=== PATIENT | female | born 1995 | race Caucasian/White ===

== ENCOUNTER 2022-06-25 12:58 | Outpatient (CLI) | payer OTHER, SELFPAY ==
--- NOTE | ~2022-06-25 | US_ITS ---
EXAMINATION: US OB <= 14 weeks fetus DATE: 06/25/2022 14:04 INDICATION: Spotting during first trimester TECHNIQUE: Real-time pelvic transabdominal and transvaginal ultrasound was performed. COMPARISON: None. FINDINGS: The uterus measures 7.7 x 3.7 x 4.7 cm. There is an intrauterine gestational sac. A yolk s ac is identified. heart motion is identified measuring 153 beats per minute (bpm) by M-mode Dop pler. The crown rump length measures 4 mm, which correlates with an estimated gestational age o f 6 weeks and 1 day(s) (+/-) 4 day(s). The right ovary is not visualized however no right adnexal abnormality is seen. The left ovary measur es 3.1 x 1.8 x 2.2 cm. There is normal vascular flow in the left ovary. There is no free fluid in the pelvis. IMPRESSION: 1. Live intrauterine with an estimated gestational age of 6 weeks and 1 day(s) (+/-) 4 day( s) and an estimated delivery date of 02/17/2023. Reviewed, dictated and finalized at location F. AULIC BOOM OPERATOR IMPRESSION: 1. Live intrauterine with an estimated gestational age of 6 weeks and 1 day(s) (+/-) 4 day(s) and an estimated delivery date of 02/17/2023.
== END 2022-06-25 12:59 | disposition home or self-care (01) ==
PROVIDERS: Visit Provider Obstetrics & Gynecology Gynecology
DX: O26.851 Spotting complicating pregnancy, first trimester (principal); Z3A.01 Less than 8 weeks gestation of pregnancy
CPT/HCPCS: 76801

== ENCOUNTER 2022-06-30 16:38 | Outpatient (RCR) | payer OTHER, SELFPAY ==
[2022-06-30] MEDS: RHO(D) IMMUNE GLOBULIN 300 MCG/2 ML SYRINGE IM (18:50)
== END 2022-09-23 23:59 | disposition home or self-care (01) ==
LOC: ANHLAB 16:38
PROVIDERS: Visit Provider Obstetrics & Gynecology Gynecology
DX: Z29.13 Encounter for prophylactic Rho(D) immune globulin (principal); O36.0110 Maternal care for anti-D [Rh] antibodies, first trimester, not applicable or unspecified; O26.851 Spotting complicating pregnancy, first trimester; Z3A.00 Weeks of gestation of pregnancy not specified
CPT/HCPCS: 36415; 84702; 85461; 86850; 86900; 86901; 90384; 96372; J2790

== ENCOUNTER 2022-09-17 12:50 | Outpatient (CLI) | payer OTHER, SELFPAY ==
--- NOTE | ~2022-09-17 | US_ITS ---
EXAMINATION: US OB /maternal detail DATE: 09/17/2022 14:25 INDICATION: anatomic survey. TECHNIQUE: Real-time ultrasound of the pelvis was performed. COMPARISON: Ultrasound 06/25/2022 FINDINGS: There is a single living fetus in transverse lie with head to mother's right. The placenta is anteri or, 1.3 cm from the cervix. heart rate is 155 beats per minute (bpm). The amniotic fluid volume is subjectively normal. The cervical length is 4.2 cm on transabdominal images, which is normal. The following biometric data were obtained: Biparietal diameter (BPD): 3.9 cm; head circumference (HC): 14.5 cm; abdominal circumference (AC): 13 .5 cm; femur length (FL): 2.7 cm. These measurements are concordant. Estimated weight is 241 g +/- 36 g, which correlates with the 7th percentile when 02/08/23 is use d as estimated date of delivery. As single measurements, these parameters are each equal to the following estimated gestational ages: BPD: 17 weeks 5 days. HC: 17 weeks 5 days. AC: 18 weeks 6 days. FL: 18 weeks 1 days. estimated gestational age based solely on measurements from this exam is 18 weeks 1 days +/- 1 weeks 2 days. The cerebral ventricles, cerebellum, cisterna magna, nuchal fold, and visualized portions of the spin e are normal. The diaphragm, stomach, and kidneys are normal. The cord insertion is normal. IMPRESSION: 1. Single living fetus in transverse lie. 2. Small for gestational age. Estimated weight is 241 g +/- 36 g, which correlates with the 7th percentile when 02/08/23 is used as estimated date of delivery. Note that estimated date of delivery b ased on the first ultrasound from 06/25/2022 would be 02/17/2023. 3. heart and bladder and umbilical cord not well visualized. Reviewed, dictated and finalized at location A. GE CLIPPER IMPRESSION: 1. Single living fetus in transverse lie. 2. Small for gestational age. Estimated weight is 241 g +/- 36 g, which c orrelates with the 7th percentile when 02/08/23 is used as estimated date of deli very. Note that estimated date of delivery based on the first ultrasound from 08/25/2021 would be 02/17/2023. 3. heart and bladder and umbilical cord not well visualized.
== END 2022-09-17 12:51 | disposition home or self-care (01) ==
PROVIDERS: Visit Provider Obstetrics & Gynecology Gynecology
DX: Z36.9 Encounter for antenatal screening, unspecified (principal)
CPT/HCPCS: 76805

== ENCOUNTER 2022-10-08 15:33 | Outpatient (CLI) | payer OTHER, SELFPAY ==
--- NOTE | ~2022-10-08 | US_ITS ---
EXAMINATION: US OB follow up DATE: 10/08/2022 16:18 INDICATION: Low-lying placenta during second trimester TECHNIQUE: Real-time ultrasound of the pelvis was performed. The interpreting radiologist was not pre sent for the study. COMPARISON: 09/17/2022 FINDINGS: There is a single living fetus in vertex presentation. The placenta is anterior and 3.5 cm from the internal cervical os. cardiac activity and movement are noted. heart rate is 138 beats per minute (bpm). The amniotic fluid index is 16.4 cm which is normal (normal range: 9.5 cm to 21.4 cm). The urinary bladder appears normal. The four-chamber heart and three-vessel cord are not well demonstrated due to body habitus. IMPRESSION: 1. Single living fetus in vertex presentation. 2. Anterior placenta 3.5 cm from the internal cervical os. 3. Four chamber heart and three-vessel cord not well demonstrated. Reviewed, dictated and finalized at location F. GEMENT ASSOCIATE
== END 2022-10-08 15:34 | disposition home or self-care (01) ==
PROVIDERS: Visit Provider Obstetrics & Gynecology Gynecology
DX: O44.42 Low lying placenta NOS or without hemorrhage, second trimester (principal)
CPT/HCPCS: 76816

== ENCOUNTER 2022-10-22 16:02 | Outpatient (CLI) | payer OTHER, SELFPAY ==
--- NOTE | ~2022-10-22 | US_ITS ---
EXAMINATION: US OB follow up DATE: 10/22/2022 17:05 INDICATION: survey follow-up TECHNIQUE: Real-time transabdominal obstetric ultrasound. FINDINGS: Comparison to multiple prior studies sequentially, with oldest reviewed study dated 2021. There is a single living fetus in vertex presentation. The placenta is anterior without placenta pre via. cardiac activity and movement is noted with a heart rate of 157 beats per minute. T he amniotic fluid volume is normal. ADRIAN measures 18.3 cm. Cervical length is 4.5 cm. The following biometric data were obtained: BPD: 56mm corresponds to gestational age 23 weeks 1 days. Head circumference: 209mm corresponds to gestational age 23 weeks 0 days. Abdominal circumference: 187mm corresponds to gestational age 23 weeks 3 days. Femur length: 40mm corresponds to gestational age 23 weeks 0 days. Estimated weight: 574grams +/- 86grams.] Limited survey demonstrates normal four-chamber heart and three-vessel cord. IMPRESSION: 1. Single living fetus in vertex presentation with an estimated gestational age of 23 weeks 1 days b y inititial ultrasound. Appropriate interval growth. 2. Normal placenta. 3: Normal limited survey of the four-chamber heart and three-vessel cord. Reviewed, dictated and finalized at location A. IMPRESSION: 1. Single living fetus in vertex presentation with an estimated gestational ag e of 23 weeks 1 days by inititial ultrasound. Appropriate interval growt h. 2. Normal placenta. 3: Normal limited survey of the four-chamber heart and three-vessel cord .
== END 2022-10-22 16:03 | disposition home or self-care (01) ==
PROVIDERS: Visit Provider Obstetrics & Gynecology Gynecology
DX: Z36.2 Encounter for other antenatal screening follow-up (principal)
CPT/HCPCS: 76816

== ENCOUNTER 2022-11-19 12:47 | Outpatient (RCR) | payer OTHER, SELFPAY ==
[2022-11-19 14:42] LABS: Hemoglobin 11.7 g/dL (12.0-15.0)
[2022-11-19 14:55] LABS: Glucose 1 Hour PP 50gm Dose 139 mg/dL
[2022-11-19] MEDS: RHO(D) IMMUNE GLOBULIN 300 MCG/2 ML SYRINGE IM (15:51)
[2022-11-19] MEDS: TETANUS,DIPHTHERIA,AC PERTUSSIS ADULT (0.5 ML) BOOSTRIX IM (15:55)
[2022-11-19 16:38] LABS: HIV 1/2 Ab P24 Ag Result Negative (Negative)
[2022-11-19 17:30] LABS: Vitamin D 25 Hydroxy 51.5 ng/mL
== END 2023-02-17 23:59 | disposition home or self-care (01) ==
LOC: ANHLAB 12:47
PROVIDERS: Visit Provider Obstetrics & Gynecology Gynecology
DX: Z11.4 Encounter for screening for human immunodeficiency virus [HIV] (principal); Z29.13 Encounter for prophylactic Rho(D) immune globulin; O36.0190 Maternal care for anti-D [Rh] antibodies, unspecified trimester, not applicable or unspecified; Z3A.00 Weeks of gestation of pregnancy not specified
CPT/HCPCS: 36415; 82306; 82947; 85014; 85018; 85461; 86703; 86850; 86900; 86901; 90384; 90715; 96372; G0432; J2790

== ENCOUNTER 2023-01-13 15:42 | Outpatient (CLI) | payer OTHER, SELFPAY ==
--- NOTE | ~2023-01-13 | US_ITS ---
EXAMINATION: US OB follow up DATE: 01/13/2023 16:26 INDICATION: Gestational diabetes during third trimester TECHNIQUE: Real-time ultrasound of the pelvis was performed. The interpreting radiologist was not pre sent for the study. COMPARISON: 10/22/2022 FINDINGS: There is a single living fetus in vertex presentation. The placenta is anterior. card iac activity and movement are noted. heart rate is 138 beats per minute (bpm). The amniot ic fluid index is 11.7 cm which is normal (normal range: 7.9 cm to 24.9 cm). The following biometric data were obtained: Biparietal diameter (BPD): 8.8 cm; head circumference (HC): 32.1 cm; abdominal circumference (AC): 35 .8 cm; femur length (FL): 6.8 cm. These measurements are concordant. Estimated weight is 3291 g +/- 493 g, which correlates with the >97th percentile when 02/17/2023 is used as estimated date of delivery. As single measurements, these parameters are each equal to the following estimated gestational ages w ith ranges of +/- 2 standard deviations: BPD: 35 weeks 4 days +/- 3 weeks 1 days. HC: 36 weeks 2 days +/- 2 weeks 5 days. AC: 39 weeks 5 days +/- 3 weeks 0 days. FL: 34 weeks 6 days +/- 3 weeks 0 days. estimated gestational age based solely on measurements from this exam is 36 weeks 4 days +/- 2 weeks 4 days. IMPRESSION: 1. Single living fetus in vertex presentation. 2. Normal amniotic fluid index. 3. Estimated weight is 3291 g +/- 493 g, which correlates with the >97th percentile when 023 is used as estimated date of delivery. Reviewed, dictated and finalized at location F. IMPRESSION: 1. Single living fetus in vertex presentation. 2. Normal amniotic fluid index. 3. Estimated weight is 3291 g +/- 493 g, which correlates with the >97th percentile when 02/17/2023 is used as estimated date of delivery.
== END 2023-01-13 15:43 | disposition home or self-care (01) ==
PROVIDERS: Visit Provider Advanced Practice Midwife
DX: O24.414 Gestational diabetes mellitus in pregnancy, insulin controlled (principal); Z79.4 Long term (current) use of insulin
CPT/HCPCS: 76816

== ENCOUNTER 2023-02-08 17:04 | Outpatient (RCR) | payer OTHER, SELFPAY ==
[2022-12-28 18:18] VITALS: BP 117/65; PULSE 96
[2022-12-31 17:30] VITALS: BP 122/75; PULSE 102
[2023-01-09 10:32] VITALS: BP 129/69; PULSE 107
[2023-01-12 17:26] VITALS: BP 116/70; PULSE 91
[2023-01-15 17:43] VITALS: BP 111/60; PULSE 100
[2023-01-18 16:06] VITALS: BP 112/77; PULSE 95
[2023-01-25 17:33] VITALS: BP 131/75; PULSE 96
[2023-02-01 17:37] VITALS: BP 116/60; PULSE 94
[2023-02-08 17:48] VITALS: BP 138/75; PULSE 90
== END 2023-03-28 23:59 | disposition home or self-care (01) ==
LOC: ANHOBOP 17:04
PROVIDERS: Visit Provider Obstetrics & Gynecology Gynecology
DX: O24.419 Gestational diabetes mellitus in pregnancy, unspecified control (principal); Z3A.32 32 weeks gestation of pregnancy
CPT/HCPCS: 59025

== ENCOUNTER 2023-02-11 16:03 | Inpatient (IN) | payer OTHER, SELFPAY ==
[2023-02-11] VITALS (17 sets, daily range): BP systolic 100–135; BP diastolic 49–81; PULSE 87–117; RESP 16–18; TEMP 36.2–36.8; BMI 42.9
[2023-02-11 16:55] LABS: Glucose Point of Care 148 mg/dl (65-105)
[2023-02-11 16:57] LABS: Basophils Percent Auto 0.2 % (0.2-1.2); Eosinophils Absolute Auto 0.1 K/mm3 (0-0.3); Eosinophils Percent Auto 0.4 % (0-4.4); Hematocrit 34.6 % (37.0-47.0); Hemoglobin 11.9 g/dL (12.0-15.0); Immature Granulocyte Absolute 0.08 K/mm3 (0.00-0.031); Immature Granulocyte Percent A 0.5 % (0-0.5); Lymphocytes Absolute Auto 1.92 K/mm3 (0.9-3.2); Lymphocytes Percent Auto 11.8 % (18.3-44.2); Mean Corpuscular HGB Conc 34.4 g/dl (32-36); Mean Corpuscular Hemoglobin 31.5 pg (26-34); Mean Corpuscular Volume 91.5 fl (80-100); Mean Platelet Volume 11.6 fl (7.4-10.4); Monocytes Absolute Auto 0.8 K/mm3 (0.1-0.6); Monocytes Percent Auto 5.1 % (2.6-8.5); Neutrophils Absolute Auto 13.3 K/mm3 (1.3-6.7); Platelet Count Result 218 k/mm3 (150-375); Red Blood Count 3.78 M/mm3 (4.2-5.4); White Blood Count 16.2 K/mm3 (4.5-10.0)
[2023-02-11] MEDS: LACTATED RINGERS 1,000 ML 125 ML IV CONT (17:12)
[2023-02-11] MEDS: AMPICILLIN 2 GM/NS 100 ML 2 GM/100 ML BAG IVPB (17:14)
[2023-02-11] MEDS: miSOPROStol 25 MCG TABLET BY MOUTH (17:17)
--- NOTE | 2023-02-11 19:02 | WPDANESEPP ---
Anes - Eval Pre Procedure Procedure: labor epidural Date/Time: 02/11/23 19:02 Pre Op Diagnosis: IOL Patient Data Age: 28 Gender: F Height: 1.7 m Weight: 124.3 kg Last Vital Signs Temp 36.8 C 02/11/23 17:00 Pulse 107 H 02/11/23 19:01 BP 133/68 02/11/23 19:01 O2 Del Method Room Air 02/11/23 17:21 Allergies Allergy/AdvReac Type Severity Reaction Status Date / Time amoxicillin Allergy Rash Verified 11/19/22 15:50 Home Medications Medication Instructions Recorded Confirmed Type aspirin 81 mg tablet 81 mg PO DAILY 12/28/22 02/11/23 History insulin NPH isoph U-100 human 100 52 unit subcut HS 12/28/22 02/11/23 History unit/mL (3 mL) subcutaneous pen (Novolin N FlexPen) vit no.95-ferrous 1 tablet PO DAILY 12/28/22 02/11/23 History fumarate 28 mg-folic acid 800 mcg tablet () Laboratory Tests 02/11/23 02/11/23 16:42 16:51 WBC 16.2 H K/mm3 (4.5-10.0) RBC 3.78 L M/mm3 (4.2-5.4) Hgb 11.9 L g/dL (12.0-15.0) Hct 34.6 L % (37.0-47.0) MCV 91.5 fl (80-100) MCH 31.5 pg (26-34) MCHC 34.4 g/dl (32-36) RDW 13.0 % (11.5-14.5) Plt Count 218 k/mm3 (150-375) MPV 11.6 H fl (7.4-10.4) Immature Gran % (Auto) 0.5 % (0-0.5) Neut % (Auto) 82.0 H % (45.5-73.1) Lymph % (Auto) 11.8 L % (18.3-44.2) [place] % (Auto) 5.1 % (2.6-8.5) Eos % (Auto) 0.4 % (0-4.4) Baso % (Auto) 0.2 % (0.2-1.2) Lymph # (Auto) 1.92 K/mm3 (0.9-3.2) [place] # (Auto) 0.8 H K/mm3 (0.1-0.6) Eos # (Auto) 0.1 K/mm3 (0-0.3) Baso # (Auto) 0.0 K/mm3 (0.0-0.1) Abs Immat Gran (auto) 0.08 H K/mm3 (0.00-0.031) Absolute Neuts (auto) 13.3 H K/mm3 (1.3-6.7) Absolute Nucleated RBC 0.0 K/mm3 (0.0-0.012) Nucleated RBC % 0.0 % (0.0-0.2) POC Capillary Glucose 148 H mg/dl (65-105) RPR Pending Blood Type A Negative Antibody Screen Negative Patient hx anesthesia problems: none Family hx anesthesia problems: none Results Review: All pre-operative results and documents have been reviewed as part of the pre-operative evaluation. [facility] Past Medical History Medical History Gestational diabetes Migraine Morbid obesity Family History Family History Grandparent Diabetes mellitus Hypertension Family history of allergic disorder Mother Hypertension Family history of allergic disorder Social History Social History Smoking status: Never smoker Second hand tobacco smoke exposure: No Alcohol intake: current Substance use: never Lack of Transportation: No Lack of Food: Never True Current Housing: I Have Housing Concerned About Future Housing: No Difficulty Paying Gas/Electric Bills: No Difficulty Paying for Meds: No Currently Unemployed: No Education: Associate Degree Difficulty w/ Childcare or Family Care: No Spiritual care concerns: No Exam Day of Procedure 02/11/23 19:02 Patient weight: morbidly obese Heart: regular rate and rhythm Lungs: clear to auscultation Airway: Mallampati scale Neurological: alert and oriented
[2023-02-11] MEDS: OXYTOCIN 30 UNITS/NS 500 ML 30 UNITS/500 ML BAG 6 UNITS IV CONT (21:17)
[2023-02-11] MEDS: AMPICILLIN 1 GM/NS 50 ML 1 GM/50 ML BAG IVPB (21:17)
[2023-02-11 21:27] LABS: Glucose Point of Care 98 mg/dl (65-105)
[2023-02-11] MEDS: INSULIN HUMAN NPH (*BKC) 100 UNITS/ML 52 UNITS SUB-Q (22:07)
[2023-02-12] VITALS (273 sets, daily range): BP systolic 70–144; BP diastolic 17–96; PULSE 62–222; RESP 16–18; TEMP 36.1–37.4; O2SAT 86–100
[2023-02-12] MEDS: AMPICILLIN 1 GM/NS 50 ML 1 GM/50 ML BAG IVPB ×6 (01:00→22:07)
[2023-02-12 01:11] LABS: Glucose Point of Care 80 mg/dl (65-105)
[2023-02-12] MEDS: LACTATED RINGERS 1,000 ML 125 ML IV CONT ×5 (05:01→22:07)
[2023-02-12 05:07] LABS: Glucose Point of Care 56 mg/dl (65-105)
[2023-02-12 05:29] LABS: Glucose Point of Care 72 mg/dl (65-105)
--- NOTE | 2023-02-12 07:37 | WPDOBADMIT ---
Obstetrics - Admit Note Admission Note: record reviewed. No pertinent additions to the history and/or any subsequent changes in the physical findings that are not consistent with the expected course of the were found. Additions to the history and/or subsequent changes in the physical findings follow. Here for MIL at 39 wks. Cervix2-3/50/-2 anterior. AROM with clear fluid. Cat I FHTs
[2023-02-12] MEDS: fentaNYL CITRATE INJ (*CRX) 100 MCG/2 ML VIAL 50 MCG IV PUSH (09:06)
[2023-02-12 09:12] LABS: Glucose Point of Care 85 mg/dl (65-105)
--- NOTE | 2023-02-12 10:24 | WPDANESEPP ---
Anes - Eval Pre Procedure Procedure: Labor epidural Date/Time: 02/12/23 10:24 Surgeon: Vladimir Preop Diagnosis: Abdominal pain with contractions Pre Op Diagnosis: IOL Patient Data Age: 28 Gender: F Height: 1.7 m Weight: 124.3 kg Last Vital Signs Temp 97.3 F L 02/12/23 10:00 Pulse 92 02/12/23 10:00 Resp 18 02/12/23 10:00 BP 118/65 02/12/23 10:00 O2 Del Method Room Air 02/11/23 17:21 Allergies Allergy/AdvReac Type Severity Reaction Status Date / Time amoxicillin Allergy Rash Verified 11/19/22 15:50 Home Medications Medication Instructions Recorded Confirmed Type aspirin 81 mg tablet 81 mg PO DAILY 12/28/22 02/11/23 History insulin NPH isoph U-100 human 100 52 unit subcut HS 12/28/22 02/11/23 History unit/mL (3 mL) subcutaneous pen (Novolin N FlexPen) vit no.95-ferrous 1 tablet PO DAILY 12/28/22 02/11/23 History fumarate 28 mg-folic acid 800 mcg tablet () Laboratory Tests 02/11/23 02/11/23 02/11/23 16:42 16:51 21:21 WBC 16.2 H K/mm3 (4.5-10.0) RBC 3.78 L M/mm3 (4.2-5.4) Hgb 11.9 L g/dL (12.0-15.0) Hct 34.6 L % (37.0-47.0) MCV 91.5 fl (80-100) MCH 31.5 pg (26-34) MCHC 34.4 g/dl (32-36) RDW 13.0 % (11.5-14.5) Plt Count 218 k/mm3 (150-375) MPV 11.6 H fl (7.4-10.4) Immature Gran % (Auto) 0.5 % (0-0.5) Neut % (Auto) 82.0 H % (45.5-73.1) Lymph % (Auto) 11.8 L % (18.3-44.2) [place] % (Auto) 5.1 % (2.6-8.5) Eos % (Auto) 0.4 % (0-4.4) Baso % (Auto) 0.2 % (0.2-1.2) Lymph # (Auto) 1.92 K/mm3 (0.9-3.2) [place] # (Auto) 0.8 H K/mm3 (0.1-0.6) Eos # (Auto) 0.1 K/mm3 (0-0.3) Baso # (Auto) 0.0 K/mm3 (0.0-0.1) Abs Immat Gran (auto) 0.08 H K/mm3 (0.00-0.031) Absolute Neuts (auto) 13.3 H K/mm3 (1.3-6.7) Absolute Nucleated RBC 0.0 K/mm3 (0.0-0.012) Nucleated RBC % 0.0 % (0.0-0.2) POC Capillary Glucose 148 H mg/dl 98 mg/dl (65-105) (65-105) RPR Pending Blood Type A Negative Antibody Screen Negative 02/12/23 02/12/23 02/12/23 01:03 05:04 05:26 WBC RBC Hgb Hct MCV MCH MCHC RDW Plt Count MPV Immature Gran % (Auto) Neut % (Auto) Lymph % (Auto) [place] % (Auto) Eos % (Auto) Baso % (Auto) Lymph # (Auto) [place] # (Auto) Eos # (Auto) Baso # (Auto) Abs Immat Gran (auto) Absolute Neuts (auto) Absolute Nucleated RBC Nucleated RBC % POC Capillary Glucose 80 mg/dl 56 L* mg/dl 72 mg/dl (65-105) (65-105) (65-105) RPR Blood Type Antibody Screen 02/12/23 09:10 WBC RBC Hgb Hct MCV MCH MCHC RDW Plt Count MPV Immature Gran % (Auto) Neut % (Auto) Lymph % (Auto) [place] % (Auto) Eos % (Auto) Baso % (Auto) Lymph # (Auto) [place] # (Auto) Eos # (Auto) Baso # (Auto) Abs Immat Gran (auto) Absolute Neuts (auto) Absolute Nucleated RBC Nucleated RBC % POC Capillary Glucose 85 mg/dl (65-105) RPR Blood Type Antibody Screen : gestational age HCG: positive Patient hx anesthesia problems: none Family hx anesthesia problems: none Results Review: All pre-operative results and documents have been reviewed as part of the pre-operative evaluation. [facility] Past Medical History Medical History (Reviewed 02/12/23 @ 10:25 by Toro March, CARBON PAPER INTERLEAFER
[2023-02-12 11:23] LABS: Glucose Point of Care 86 mg/dl (65-105)
[2023-02-12] MEDS: ONDANSETRON INJ 4 MG/2 ML VIAL IV PUSH (11:29)
[2023-02-12 16:38] LABS: Rapid Plasma Reagin Non-Reactive (NonReactive)
[2023-02-12 17:50] LABS: Glucose Point of Care 75 mg/dl (65-105)
[2023-02-12 17:50] LABS: Glucose Point of Care 67 mg/dl (65-105)
[2023-02-12 18:18] LABS: Glucose Point of Care 74 mg/dl (65-105)
[2023-02-12 20:43] LABS: Glucose Point of Care 80 mg/dl (65-105)
[2023-02-12 22:50] LABS: Glucose Point of Care 75 mg/dl (65-105)
--- NOTE | 2023-02-12 23:23 | PM.IMHP ---
H&P: HPI History of Present Illness Date/Time: 02/12/23 23:23 Chief Complaint: Failure to descend Narrative: 28-year-old 1 at 39 and 2 7th weeks admitted for medical induction of labor secondary to gestational diabetes A2. Patient had steady progress to complete. Patient was complete and -1 and felt to be occiput posterior. Attempt to manually rotate the infant was not successful. Patient has been pushing for an additional 2hours with minimal descent of the bony vertex. Bony vertex is at approximately the 0 station. Patient was offered continued pushing versus proceeding with and she has chosen to proceed with at this time which I feel is appropriate. labs A negative, rubella immune, RPR negative, hepatitis-B surface antigen negative, HIV negative, group B strep Positive. Review of Systems Constitutional: Constitutional: Reports other [facility] Past Medical History Medical History (Updated 02/12/23 @ 23:31 by Priyanka Gilbert MD) GDM, class A2 Migraine Morbid obesity Family History Family History Grandparent Diabetes mellitus Hypertension Family history of allergic disorder Mother Hypertension Family history of allergic disorder Social History Social History Smoking status: Never smoker Second hand tobacco smoke exposure: No Alcohol intake: current Substance use: never Lack of Transportation: No Lack of Food: Never True Current Housing: I Have Housing Concerned About Future Housing: No Difficulty Paying Gas/Electric Bills: No Difficulty Paying for Meds: No Currently Unemployed: No Education: Associate Degree Difficulty w/ Childcare or Family Care: No Spiritual care concerns: No Meds Home Medications and Allergies Home Medications Medication Instructions Recorded Confirmed Type aspirin 81 mg tablet 81 mg PO DAILY 12/28/22 02/11/23 History insulin NPH isoph U-100 human 100 52 unit subcut HS 12/28/22 02/11/23 History unit/mL (3 mL) subcutaneous pen (Novolin N FlexPen) vit no.95-ferrous 1 tablet PO DAILY 12/28/22 02/11/23 History fumarate 28 mg-folic acid 800 mcg tablet () Allergies Allergy/AdvReac Type Severity Reaction Status Date / Time amoxicillin Allergy Rash Verified 11/19/22 15:50 Vital Signs Vital Signs - 24 hr 02/11/23 23:31 02/12/23 00:01 02/12/23 00:31 Temperature Pulse Rate 91 86 82 Respiratory Rate Blood Pressure 132/81 142/75 H 136/67 Pulse Oximetry 02/12/23 01:01 02/12/23 01:31 02/12/23 02:01 Temperature Pulse Rate 82 96 84 Respiratory Rate Blood Pressure 132/71 120/96 H 115/66 Pulse Oximetry 02/12/23 02:30 02/12/23 03:01 02/12/23 03:05 Temperature Pulse Rate 83 71 67 Respiratory Rate Blood Pressure 119/73 82/44 L 115/50 L Pulse Oximetry 02/12/23 03:00 02/12/23 03:31 02/12/23 04:01 Temperature 97.3 F L Pulse Rate 74 66 Respiratory Rate 16 Blood Pressure 102/51 L 105/62 Pulse Oximetry 02/12/23 04:31 02/12/23 05:01 02/12/23 05:30 Temperature Pulse Rate 62 88 84 Respiratory Rate Blood Pressure 118/63 102/58 L 114/66 Pulse Oximetry 02/12/23 06:01 02/12/23 06:31 02/12/23 07:01 Temperature Pulse Rate 74 73 84 Respiratory Rate Blood Pressure 111/59 L 115/53 L 127/73 Pulse Oximetry 02/12/23 07:31 02/12/23 08:00 02/12/23 08:31 Temperature Pulse Rate 91 90 79 Respiratory Rate Blood Pressure 124/83 129/77 117/58 L Pulse Oximetry 02/12/23 09:01 02/12/23 09:00 02/12/23 09:30 Temperature 97.3 F L Pulse Rate 85 68 Respiratory Rate 18 Blood Pressure 89/70 L 111/76 Pulse Oximetry 02/12/23 10:00 02/12/23 10:31 02/12/23 10:35 Temperature 97.3 F L Pulse Rate 92 114 H Respiratory Rate 18 Blood Pressure 118/65 138/90 Pulse Oximetry 98
--- NOTE | 2023-02-12 23:31 | WPDHPUPDATE1 ---
History and Physical Update Update Date/Time: 02/12/23 23:31 History and Physical has been reviewed, including an updated exam of the patient. There are NO changes in the patient's condition. Risks, benefits, and alternatives have been discussed and questions answered. Patient agrees to proceed with procedure.
[2023-02-12] MEDS: ceFAZolin 3 GM/D5W 100 ML 100 ML IVPB (23:47)
[2023-02-12] MEDS: AZITHROMYCIN 500 MG/NS 250 ML 500 MG/250 ML BAG 250 MG IVPB (23:57)
[2023-02-13] VITALS (57 sets, daily range): BP systolic 64–126; BP diastolic 25–78; PULSE 79–228; RESP 12–18; TEMP 36.4–36.7; O2SAT 93–99
--- NOTE | 2023-02-13 00:27 | W.PM.PROC2 ---
Procedure Note - Detailed Date of Procedure 02/13/23 Pre-op Diagnosis intrauterine at 39 and 2 7th weeks gestational diabetes insulin requiring failure to descend with occiput posterior position Post-op Diagnosis Same Procedure Performed primary low-transverse section Surgeon Priyanka Gilbert MD Anesthesia Epidural Findings female infant 8lb 11oz with 9 and 9 Apgars in the right occiput posterior position; meconium-stained fluid; normal-appearing tubes, ovaries, uterus Description of Procedure The patient is taken to the operating room and placed under anesthesia in the dorsal supine position with a leftward tilt. Once anesthesia was deemed adequate she was prepped and draped in the usual sterile fashion. Pfannenstiel skin incision was made with a scalpel and carried down to the underlying layer of fascia which was nicked in the midline. The incision was extended laterally using Torres scissors. Ochsner was used to tent the fascia which was then dissected off using sharp and blunt dissection. The rectus muscles are in the midline and the peritoneum entered with a Peon. The incision was extended with blunt traction. The bladder blade is placed and the vesicouterine peritoneum was noted to be high upon the uterus. It is grasped with a Peon. The bladder flap was created using Metzenbaum and blunt dissection. The bladder blade is replaced. The lower uterine segment was incised in a transverse fashion with the scalpel and extended with blunt traction. Thick meconium fluid is noted. The is brought up into the incision and delivered while the registered medical assistant applied fundal pressure. The was fully delivered and immediately cried vigorously. Delayed cord clamping was performed. The cord was then clamped and cut and the handed to the waiting nursery nurse. The placenta was removed using manual traction after cord gas and cord blood were drawn. The uterus is cleared of all clots and debris and exteriorized. The uterine incision was closed using 0 Monocryl in a running locked fashion with the same suture used to imbricate. Two additional [id number] sutures are required in the midline for hemostasis. The bladder flap had some oozing areas that were cauterized and hemaderm and was placed between the bladder flap and the uterine incision. The instruments and sponges were removed. The fascia was closed using 0 Vicryl in a running fashion. The subcutaneous tissues were irrigated and made hemostatic using Bovie cautery. Skin incision was closed using 4-0 Vicryl in a subcuticular fashion. Dermaflex was placed over the incision. Sponge, needle, and instrument counts are correct per the OR staff. Patient was taken to recovery in stable condition. Patient received 3g of Ancef as well as Zithromax. Estimated Blood Loss 920 Drains Yes ( Rangel catheter) Packing No Pathology Yes ( placenta) Complications No immediate complications Condition Stable Disposition Floor
--- NOTE | 2023-02-13 00:33 | PM.OBDSVD ---
DS: Admitting Diagnosis Discharge Date 02/15/23 Admitting Diagnosis intrauterine at 39-,1/7 weeks with gestational diabetes insulin requiring for medical induction of labor DS: Discharge Diagnosis Discharge Diagnosis (1) delivery delivered: Code(s): O82 - Encounter for delivery without indication Status: Acute (2) Failure of descent in labor, delivered, current hospitalization: Code(s): O62.2 - Other uterine inertia Status: Acute (3) GDM, class A2: Code(s): O24.419 - Gestational diabetes mellitus in , unspecified control Status: Acute OB - DS: Summary OB Procedures : NST, Ultrasound and Other ( diabetes management) OB Procedures Intrapartum: low cervical, transverse OB Procedures: : None Peripartum Data Infant Delivery Method: Section Procedures: Procedures Operation Date: 02/12/23 23:30 <No data on this case meets the specified criteria> complications: none Status at Discharge Functional status at discharge: independent ambulation Overall status at discharge: patient is progressing back to baseline Time Spent with Patient Time attestation: Total time spent providing and/or coordinating discharge services: DS: Data Data Completed and Pending Labs on day of discharge: Labs from last 24 hours 02/12/23 02/12/23 02/12/23 22:36 20:40 18:10 POC Capillary Glucose 75 80 74 RPR 02/12/23 02/12/23 02/12/23 16:24 16:06 11:13 POC Capillary Glucose 75 67 86 RPR 02/12/23 02/12/23 02/12/23 09:10 05:26 05:04 POC Capillary Glucose 85 72 56 L* RPR 02/12/23 02/11/23 01:03 16:42 POC Capillary Glucose 80 RPR Non-reactive Discharge Plan Discharge Attending physician on discharge: Priyanka Gilbert Discharging Clinician: Priyanka Gilbert Anticipated Discharge Date/Time: 02/16/23 00:34 Patient Disposition: Home, Self-Care Activity: may shower, may drive after 2 weeks and pelvic rest Diet: regular Wound Care Instructions: incision open to air Patient Instructions: Antibiotic Form Stand Alone Forms: General Discharge Information Follow-up/Referrals: Priyanka Gilbert MD [Physician] - 1 Week ( and 6 week) Discharge Medications: New hydrocodone-acetaminophen 5-325 mg tablet 1 tablet PO Q4H PRN (Reason: pain) Qty: 14 0RF norethindrone (contraceptive) 0.35 mg tablet 0.35 mg PO DAILY Qty: 84 3RF Continued PNV cmb#95-ferrous fumarate-FA [] 28 mg iron- 800 mcg Tablet 1 tablet PO DAILY Discontinued aspirin 81 mg Tablet 81 mg PO DAILY Novolin N FlexPen 100 unit/mL (3 mL) Insulin Pen 52 unit SUBCUT HS Date of admission: 02/11/23 16:03 Primary Care Provider: PHYSICIAN,PROGRESSIVE CARE MANAGER Admitting Provider: Priyanka Gilbert Attending physician on admission: Priyanka Gilbert Condition: Stable
--- NOTE | 2023-02-13 01:01 | SUR.PHASEI ---
Rohan Nazario RN at bedside low BP noted of 64/25 and increased HR of 228. PT sitting up in stable condition.
--- NOTE | 2023-02-13 01:16 | SUR.PHASEI ---
Rohan Nazario RN at bedside low BP noted of 67/44, PT sitting up in stable condition.
[2023-02-13] MEDS: OXYTOCIN 30 UNITS/NS 500 ML 30 UNITS/500 ML BAG 125 UNITS IV CONT (02:32)
[2023-02-13] MEDS: HYDROcodone/acetaminophen (*CRX) 5-325 MG TABLET 1 TAB PO ×3 (04:54→18:11)
[2023-02-13] MEDS: DEXTROSE 5%/0.45% SOD CHL 1,000 ML 125 ML IV CONT (06:00)
--- NOTE | 2023-02-13 08:28 | PM.OBPNVD ---
OB - PN: Subj Subjective Date/time seen: 02/13/23 08:28 Patient comments: no complaints and pain well controlled baby status: doing well OB - PN: Obj Data Labs 02/11/23 16:42 Labs: Laboratory Results - last 24 hr 02/11/23 02/12/23 02/12/23 16:42 09:10 11:13 POC Capillary Glucose 85 86 RPR Non-reactive 02/12/23 02/12/23 02/12/23 16:06 16:24 18:10 POC Capillary Glucose 67 75 74 RPR 02/12/23 02/12/23 20:40 22:36 POC Capillary Glucose 80 75 RPR OB - PN A/P Plan day: 1 Plan: routine care Time Spent With Patient Time: Total time spent is greater than 50% in coordination of care (as documented) at patient's floor/unit and/or counseling patient: Exam Narrative: inc c/d/i : Bimanual exam- vagina & uterus: other (Uterus firm, nt @U)
--- NOTE | 2023-02-13 09:33 | WPDANLDNPN2 ---
Anes-Prog Note L&D-Neuraxial Date/Time: 02/13/23 09:33 Neuraxial medications: epidural PF morphine Opiod-related complaints: none Patient feedback: Patient satisfied with post-operative pain management.
--- NOTE | 2023-02-13 09:34 | WPDANLDPN2 ---
Anes-Prog Note L&D Date/Time: 02/13/23 09:34 Neuro status: Neuro function grossly intact. Cardiovascular status: normal Respiratory status: normal Airway patency: baseline Mental status: baseline Post-Op hydration status: normal Vital Signs: Last Vital Signs Temp 36.7 C 02/13/23 03:48 Pulse 101 H 02/13/23 03:48 Resp 16 02/13/23 03:48 BP 121/70 02/13/23 03:48 Pulse Ox 97 02/13/23 03:48 O2 Del Method Room Air 02/13/23 02:38 Pain score (VAS): 1 I/O: Intake & Output 02/12/23 02/13/23 02/13/23 23:59 07:59 15:59 Intake Total 1650 250 Output Total 548 Balance 1650 -298 Post-procedural complaints: none Patient feedback: Patient satisfied with anesthetic care.
[2023-02-13] MEDS: DOCUSATE SODIUM 100 MG CAPSULE PO ×2 (09:45→18:10)
[2023-02-13] MEDS: MULTIVIT/MIN/PREN/FOL AC/IRON TABLET 1 TAB PO (09:45)
[2023-02-13] MEDS: LIDOCAINE 5% PATCH 1 PATCH TRANSDERM ×2 (09:48→21:50)
[2023-02-13] MEDS: IBUPROFEN 600 MG TABLET PO ×2 (13:42→19:58)
[2023-02-14] MEDS: SIMETHICONE 80 MG TAB.CHEW PO ×3 (01:53→14:11)
[2023-02-14] MEDS: IBUPROFEN 600 MG TABLET PO ×4 (01:53→20:55)
[2023-02-14] MEDS: HYDROcodone/acetaminophen (*CRX) 5-325 MG TABLET 1 TAB PO ×5 (01:53→20:54)
[2023-02-14 05:52] LABS: Basophils Percent Auto 0.2 % (0.2-1.2); Eosinophils Absolute Auto 0.1 K/mm3 (0-0.3); Eosinophils Percent Auto 0.8 % (0-4.4); Hematocrit 26.5 % (37.0-47.0); Hemoglobin 8.7 g/dL (12.0-15.0); Immature Granulocyte Absolute 0.08 K/mm3 (0.00-0.031); Immature Granulocyte Percent A 0.6 % (0-0.5); Lymphocytes Absolute Auto 1.94 K/mm3 (0.9-3.2); Lymphocytes Percent Auto 14.6 % (18.3-44.2); Mean Corpuscular HGB Conc 32.8 g/dl (32-36); Mean Corpuscular Hemoglobin 31.2 pg (26-34); Mean Platelet Volume 10.9 fl (7.4-10.4); Monocytes Absolute Auto 0.9 K/mm3 (0.1-0.6); Monocytes Percent Auto 6.6 % (2.6-8.5); Neutrophils Absolute Auto 10.2 K/mm3 (1.3-6.7); Neutrophils Percent Auto 77.2 % (45.5-73.1); Platelet Count Result 156 k/mm3 (150-375); Red Blood Count 2.79 M/mm3 (4.2-5.4); Red Cell Distribution Width 13.2 % (11.5-14.5); White Blood Count 13.3 K/mm3 (4.5-10.0)
[2023-02-14] MEDS: POLYSACCHARIDE IRON COMPLEX 150 MG CAPSULE PO ×2 (07:57→16:53)
[2023-02-14] MEDS: MULTIVIT/MIN/PREN/FOL AC/IRON TABLET 1 TAB PO (07:57)
[2023-02-14] MEDS: DOCUSATE SODIUM 100 MG CAPSULE PO ×2 (07:57→16:53)
[2023-02-14 08:00] VITALS: BP 131/71; PULSE 96; RESP 18; TEMP 36.6; O2SAT 98
--- NOTE | 2023-02-14 08:14 | PM.OBPNVD ---
OB - PN: Subj Subjective Date/time seen: 02/14/23 08:14 Patient comments: no complaints and pain well controlled baby status: doing well OB - PN: Obj Data Labs 02/14/23 05:42 Labs: Laboratory Results - last 24 hr 02/14/23 05:42 WBC 13.3 H RBC 2.79 L Hgb 8.7 L D Hct 26.5 L MCV 95.0 MCH 31.2 MCHC 32.8 RDW 13.2 Plt Count 156 MPV 10.9 H Immature Gran % (Auto) 0.6 H Neut % (Auto) 77.2 H Lymph % (Auto) 14.6 L [place] % (Auto) 6.6 Eos % (Auto) 0.8 Baso % (Auto) 0.2 Lymph # (Auto) 1.94 [place] # (Auto) 0.9 H Eos # (Auto) 0.1 Baso # (Auto) 0.0 Abs Immat Gran (auto) 0.08 H Absolute Neuts (auto) 10.2 H Absolute Nucleated RBC 0.0 Nucleated RBC % 0.0 Blood Type A Negative Antibody Screen TNP Baby's Blood Type A pos Baby's MIRTHA Negative OB - PN A/P Plan day: 2 Plan: routine care Comments: no symptoms with anemia Time Spent With Patient Time: Total time spent is greater than 50% in coordination of care (as documented) at patient's floor/unit and/or counseling patient: Exam Narrative: inc c/d/i : Bimanual exam- vagina & uterus: other (Uterus firm, nt @U)
[2023-02-14] MEDS: LIDOCAINE 5% PATCH 1 PATCH TRANSDERM (14:12)
[2023-02-14] MEDS: RHO(D) IMMUNE GLOBULIN 300 MCG/2 ML SYRINGE IM (14:55)
[2023-02-14 20:40] VITALS: BP 128/71; PULSE 103; RESP 16; TEMP 36.7; O2SAT 98
[2023-02-15] MEDS: HYDROcodone/acetaminophen (*CRX) 5-325 MG TABLET 1 TAB PO ×3 (00:12→07:37)
[2023-02-15] MEDS: IBUPROFEN 600 MG TABLET PO (03:36)
[2023-02-15] MEDS: SIMETHICONE 80 MG TAB.CHEW PO ×2 (03:36→07:38)
--- NOTE | 2023-02-15 06:49 | PC.NURSE ---
02/14/23 at 2200 Patient viewed the discharge video Mother & Baby Care, The First Two Weeks . Patient was given the opportunity and encouraged to ask questions. Patient verbalized understanding of information shared and has been given the mother/baby guide for home reference.
[2023-02-15] MEDS: POLYSACCHARIDE IRON COMPLEX 150 MG CAPSULE PO (07:37)
[2023-02-15] MEDS: DOCUSATE SODIUM 100 MG CAPSULE PO (07:37)
[2023-02-15] MEDS: MULTIVIT/MIN/PREN/FOL AC/IRON TABLET 1 TAB PO (07:37)
[2023-02-15 07:38] VITALS: BP 133/73; PULSE 90; RESP 14; TEMP 36.4; O2SAT 98
--- NOTE | 2023-02-15 09:49 | PM.OBPNVD ---
OB - PN: Subj Subjective Date/time seen: 02/15/23 09:49 Patient comments: no complaints and pain well controlled baby status: doing well OB - PN: Obj Data Labs 02/14/23 05:42 Labs: Laboratory Results - last 24 hr 02/14/23 05:42 Blood Type A Negative Antibody Screen TNP Screen Positive Baby's Blood Type A pos Baby's MIRTHA Negative KB Hemoglobin Positive Doses of RhIg Required 1 OB - PN A/P Plan day: 3 Plan: routine care, discharge home and other (POP for bc) Time Spent With Patient Time: Total time spent is greater than 50% in coordination of care (as documented) at patient's floor/unit and/or counseling patient: Exam Narrative: inc c/d/i : Bimanual exam- vagina & uterus: other (Uterus firm, nt @U)
--- NOTE | 2023-02-15 10:49 | PC.NURSE ---
[id number] Introductions were made, then consulted with patient to assess needs related to . Mother led the conversation with her?plans to feed?her infant and the?experience so far. Resources provided for inpatient and outpatient services with the feeding sheet, mom/baby guide and name written on the white board. Mother voiced understanding of information. Mother has decided to pump and feed related to her anxiety during the 2nd 24 hour period as she describes infant as fussy. Mother states her latches well without pain she was just worried that her infant wasn't getting enough related to fussiness and a low blood sugar result. Reviewed a plan to protect her milk supply and how RN can support her plan. Discussed her anxiety and stress related to the primary C/S, pumping, , and offer of assistance with questions, concerns, assessment latch if she desires to go that route of feeding, and a flange fitting for pumping. Breast pump provided due to mother's decision. Instructions given on cleaning, care, usage, that there should be no pain, pumping schedule for milk production, collection, and storage of human milk. Patient encouraged to pump for comfort and nipple stretching/stimulation for adequate milk production every 3 hours 1-2 times at night. Mother voiced understanding of the education shared along with mom and baby guide for additional resource information.
[2023-02-16 09:24] VITALS: BP 125/70; PULSE 78; RESP 18; TEMP 36.8; O2SAT 100
== END 2023-02-15 13:30 | disposition home or self-care (01) | DRG 788 ==
LOC: ANHLDR 02-13 00:34 → ANHOB2 02-13 03:15
PROVIDERS: Admitting Provider Obstetrics & Gynecology Gynecology; Visit Provider Obstetrics & Gynecology Gynecology
PROC: 10907ZC Drainage of Amniotic Fluid, Therapeutic from Products of Conception, Via Natural or Artificial Opening (ICD-10-PCS; CPT 59514; principal; 2023-02-12 23:30)
DX: O24.424 Gestational diabetes mellitus in childbirth, insulin controlled (principal); Z37.0 Single live birth; Z3A.39 39 weeks gestation of pregnancy; O99.824 Streptococcus B carrier state complicating childbirth; O62.2 Other uterine inertia
CPT/HCPCS: 36415; 82948; 85025; 85460; 85461; 86592; 86850; 86900; 86901; 88307; 90384; A9270; J0290; J0456; J0690; J1815; J2274; J2405; J2590; J2790; J2795; J3010; J7120

== ENCOUNTER 2023-04-06 08:55 | Outpatient (CLI) | payer OTHER, SELFPAY ==
[2023-04-06 10:19] LABS: Vitamin D 25 Hydroxy 50.5 ng/mL
[2023-04-06 10:40] LABS: Glucose Fasting 81 mg/dL
[2023-04-06 11:37] LABS: Glucose 1 Hour 105 mg/dL
[2023-04-06 13:43] LABS: Glucose 2 Hour 102 mg/dL
== END 2023-04-06 08:56 | disposition home or self-care (01) ==
LOC: ANHLAB 08:57
PROVIDERS: Visit Provider Obstetrics & Gynecology Gynecology
DX: O24.419 Gestational diabetes mellitus in pregnancy, unspecified control (principal); E55.9 Vitamin D deficiency, unspecified; Z3A.00 Weeks of gestation of pregnancy not specified
CPT/HCPCS: 36415; 82306; 82951

== ENCOUNTER 2025-01-07 07:17 | Emergency (ER) | payer OTHER, SELFPAY ==
--- NOTE | ~2025-01-07 | XR_ITS ---
EXAMINATION: XR knee LT min 4V DATE: 01/07/2025 07:38 INDICATION: Left knee dislocation with pain and swelling TECHNIQUE: AP, crosstable lateral and 2 oblique views of the left knee were obtained COMPARISON: None. FINDINGS: Alignment is normal. No fracture. Likely moderate-sized knee joint effusion. Mild subcutaneous edema about the anteromedial aspect of the knee. IMPRESSION: 1. Likely moderate-sized left knee joint effusion. No acute osseous abnormality. Reviewed, dictated and finalized at location A. IMPRESSION: 1. Likely moderate-sized left knee joint effusion. No acute osseous abnormality .
[2025-01-07 07:23] VITALS: BP 122/74; PULSE 85; RESP 16; TEMP 36.7; O2SAT 100
--- NOTE | 2025-01-07 07:45 | ED_ITS ---
HPI - Extremity Injury (Lower) General Chief Complaint: Extremity Injury, Lower Stated Complaint: L. knee dislocation Time Seen by Provider: 01/07/25 07:42 Source: patient Related Data Home Medications ?Medication ?Instructions ?Recorded ?Confirmed ?Last Taken ?Type vit no.95-ferrous 1 tablet PO DAILY 12/28/22 02/11/23 02/10/23 21:00 History fumarate 28 mg-folic acid 800 mcg tablet () Allergies Allergy/AdvReac Type Severity Reaction Status Date / Time amoxicillin Allergy Rash Verified 01/07/25 07:19 [facility] Past Medical History Medical History (Updated 01/07/25 @ 08:12 by Hieu Zhong MD) GDM, class A2 Morbid obesity Migraine Family History Family History Grandparent Diabetes mellitus Hypertension Family history of allergic disorder Mother Hypertension Family history of allergic disorder Social History Social History Smoking status: Never smoker Second hand tobacco smoke exposure: No Alcohol intake: current Substance use: never Lack of Transportation: No Lack of Food: Never True Current Housing: I Have Housing Concerned About Future Housing: No Difficulty Paying Gas/Electric Bills: No Difficulty Paying for Meds: No Currently Unemployed: No Education: Associate Degree Difficulty w/ Childcare or Family Care: No Spiritual care concerns: No Course Vital Signs Vital signs: Vital Signs Temperature 36.7 C 01/07/25 07:23 Pulse Rate 85 01/07/25 07:23 Respiratory Rate 16 01/07/25 07:23 Blood Pressure 122/74 01/07/25 07:23 Pulse Oximetry 100 01/07/25 07:23 Oxygen Delivery Room Air 01/07/25 07:23 Temperature 36.7 C 01/07/25 07:23 Pulse Rate 85 01/07/25 07:23 Respiratory Rate 16 01/07/25 07:23 Blood Pressure 122/74 01/07/25 07:23 Pulse Oximetry 100 01/07/25 07:23 Oxygen Delivery Room Air 01/07/25 07:23 Discharge Plan Discharge Clinical Impression: Knee sprain Patient Disposition: Home Condition: Stable Instructions: Knee Sprain (ED) Additional Instructions: Return if symptoms are worsening , call your family physician for appointment, take Tylenol, ibuprofen as as needed for aches and pain, continue home medications. Patient Language: Georgian Prescriptions: No Action hydrocodone-acetaminophen 5-325 mg tablet 1 tablet PO Q4H PRN (Reason: pain) Qty: 14 0RF norethindrone (contraceptive) 0.35 mg tablet 0.35 mg PO DAILY Qty: 84 3RF PNV cmb#95-ferrous fumarate-FA [] 28 mg iron- 800 mcg Tablet 1 tablet PO DAILY Follow-up/Referrals: PHYSICIAN,PUBLIC RELATIONS CONSULTANT [Primary Care Provider] - Wong Antonio MD [Physician] - 01/11/25
[2025-01-07 08:29] VITALS: BP 104/61; PULSE 79; RESP 16; TEMP 36.4; O2SAT 100
== END 2025-01-07 08:31 | disposition home or self-care (01) ==
PROVIDERS: Emergency Provider Emergency Medicine
DX: S83.92XA Sprain of unspecified site of left knee, initial encounter (principal); E66.01 Morbid (severe) obesity due to excess calories; X58.XXXA Exposure to other specified factors, initial encounter
CPT/HCPCS: 73564; 99283